=== PATIENT | female | born 1995 | race Caucasian/White ===

== ENCOUNTER → 2017-10-04 | Outpatient (CLI) | payer OTHER ==
--- NOTE | 2017-10-05 09:32 | MR ---
EXAMINATION TYPE: MR knee LT wo con DATE OF EXAM: 10/04/2017 COMPARISON: NONE HISTORY: Left knee pain TECHNIQUE: Multiplanar, multisequence imaging of the left knee is performed without IV contrast. FINDINGS: MEDIAL MENISCUS: Posterior horn of the medial meniscus shows some internal stellate signal, sagittal image 23 of the T1-weighted data set shows some questionable communication with the articular surface inferiorly. LATERAL MENISCUS: Anterior and posterior horns are intact without tear. CRUCIATE LIGAMENTS: Anterior cruciate ligament shows some internal increased signal. COLLATERAL LIGAMENTS: The medial collateral ligament and lateral collateral ligament complex are inta ct and unremarkable. EXTENSOR MECHANISM: Visualized quadriceps and patellar tendons are intact. EFFUSION: Minimal joint effusion. POPLITEAL CYST: No popliteal/diaz cyst. TRICOMPARTMENT SPACES: Maintained CARTILAGE: Intact BONE MARROW SIGNAL: No focal abnormal marrow signal is appreciated. OTHER: No additional significant abnormality is appreciated. IMPRESSION: There may be strain or partial tear of the anterior cruciate ligament. Difficult to exclude tear of t he posterior horn of the medial meniscus as described.
== END | disposition home or self-care (01) ==
LOC: RADMRIMAIN 18:47 → MERGE 18:47
PROVIDERS: ATTEND Family Medicine
DX: M25.562 Pain in left knee (principal)